=== PATIENT | female | born 2000 | race Caucasian/White ===

== ENCOUNTER 2022-02-23 22:09 | Inpatient (IN) ==
[2022-02-23] MEDS ORDERED: ONDANSETRON 4 MG/2 ML VIAL IV PRN (22:18)
[2022-02-23] MEDS ORDERED: CARBOPROST TROMETHAMINE 250 MCG/ML AMP IM PRN (22:18)
[2022-02-23] MEDS ORDERED: MEPERIDINE 50 MG/1 ML VIAL IV PRN (22:18)
[2022-02-23] MEDS ORDERED: TRANEXAMIC ACID 1,000 MG in SODIUM CHLORIDE 0.9% 100 ML IV PRN (22:18)
[2022-02-23] MEDS ORDERED: miSOPROStoL 200 MCG TABLET RECTAL PRN (22:18)
[2022-02-23] MEDS ORDERED: METHYLERGONOVINE 0.2 MG/1 ML AMP IM PRN (22:18)
[2022-02-23] MEDS ORDERED: OXYTOCIN/LR 20 UNIT/1,000 ML BAG IV ONE (22:18)
[2022-02-23] MEDS ORDERED: LACTATED RINGERS 1,000 ML IV SCH (22:30)
[2022-02-23 23:06] LABS: Basophils % 0.2 % (0.0-0.8); Eosinophils # 0.1 10*3/uL (0.0-0.87); Eosinophils % 1.3 % (0.00-10.9); Hematocrit 33.9 VOL% (35.7-47.0); Hemoglobin 11.5 GM/DL (12.0-16.0); Immature Granulocytes % 0.8 %; Immature Granulocytes Absolute 0.09 #; Lymphocytes # 1.6 10*3/uL (1.4-4.0); Lymphocytes % 15.3 % (21.3-54.2); Mean Corpuscular HGB Conc 33.9 GM/DL (32-36); Mean Corpuscular Volume 86.5 FL (87-102); Mean Platelet Volume 9.1 FL (9.6-12.0); Monocytes # 0.7 10*3/uL (0.11-0.8); Monocytes % 6.9 % (1.7-12.7); Neutrophils % 75.5 % (38.7-73.9); Platelet Count 258 T/CUMM (130-400); Red Blood Count 3.92 MC/CUMM (3.8-5.5); Red Cell Distribution Width 13.2 % (9.3-17.3); White Blood Count 10.7 T/CUMM (4-12)
[2022-02-23 23:48] LABS: Alanine Aminotransferase 15 U/L (13-56); Albumin 2.9 G/DL (3.4-5.0); Alkaline Phosphatase 180 U/L (45-117); Aspartate Amino Transferase 9 U/L (0-37); Bilirubin,Total < 0.39 MG/DL (0.20-1.00); Blood Urea Nitrogen 6 MG/DL (7-18); Calcium 9.5 MG/DL (8.5-10.1); Carbon Dioxide 23 MMOL/L (21-32); Chloride 108 MMOL/L (98-107); Glucose 92 MG/DL (74-106); Osmolality,Calculated 272.7 MOS/KG (273-304); Potassium 3.9 MMOL/L (3.5-5.1); Sodium 138 MMOL/L (136-145); Total Protein 6.6 G/DL (6.4-8.2)
[2022-02-24] MEDS ORDERED: OXYTOCIN/LR 20 UNIT/1,000 ML BAG IV SCH (02:00)
[2022-02-24] MEDS ORDERED: hydrOXYzine HCL 25 MG/1 ML VIAL IM PRN (07:22)
[2022-02-24] MEDS ORDERED: FAMOTIDINE 20 MG/2 ML VIAL IV ONE (07:22)
[2022-02-24] MEDS ORDERED: ePHEDrine 50 MG/ML VIAL IV PRN (07:22)
[2022-02-24] MEDS ORDERED: NALOXONE 0.4 MG/ML VIAL IV PRN (07:22)
[2022-02-24] MEDS ORDERED: ONDANSETRON 4 MG/2 ML VIAL IV ONE (07:22)
[2022-02-24] MEDS ORDERED: PROMETHAZINE 25 MG/1 ML VIAL IM ONE (07:22)
[2022-02-24] MEDS ORDERED: diphenhydrAMINE 50 MG/1 ML VIAL IV PRN ×2 (07:22)
[2022-02-24] MEDS ORDERED: LACTATED RINGERS 1,000 ML IV ONE (07:22)
[2022-02-24] MEDS ORDERED: CITRIC ACID/SODIUM CITRATE 30 ML UDCUP PO ONE (07:22)
[2022-02-24] MEDS ORDERED: LACTATED RINGERS 1,000 ML IV SCH (07:30)
[2022-02-24] MEDS ORDERED: fentaNYL 2 MCG/ROPIV 0.2% EPID 100 ML EPIDURAL SCH (07:30)
[2022-02-24] MEDS: LACTATED RINGERS 1,000 ML IV SCH ×2 (07:51→11:39)
[2022-02-24 10:01] LABS: Bilirubin,Urine Negative (Negative); Blood, Urine Large mg/dL (Negative); Glucose,Urine (UA) Negative (Negative); Ketones,Urine Negative (Negative); Nitrite,Urine Negative (Negative); Protein,Urine Negative (Negative); Urine Appearance Clear (Clear); Urine Color Yellow (Yellow); Urine Specific Gravity 1.015 (1.001-1.035); Urine Urobilinogen 0.2 eU/dL (<2.0)
[2022-02-24 10:03] LABS: Squamous Epithelial Cell,Urine Few /HPF (0-10)
[2022-02-24 10:04] LABS: RBC,Urine 20-30 /HPF (0-4)
[2022-02-24] MEDS ORDERED: SODIUM CHLORIDE 0.9% 0 ML IV ONE (10:43)
[2022-02-24] MEDS ORDERED: TRANEXAMIC ACID 1,000 MG/10 ML VIAL ONE (10:43)
[2022-02-24] MEDS ORDERED: miSOPROStoL 200 MCG TABLET ONE (10:43)
[2022-02-24] MEDS ORDERED: METHYLERGONOVINE 0.2 MG/1 ML AMP ONE (10:44)
[2022-02-24] MEDS ORDERED: CARBOPROST TROMETHAMINE 250 MCG/ML AMP IM ONE (10:44)
[2022-02-24 11:45] LABS: Cord Arterial Blood HCO3 22.4 MMOL/L
[2022-02-24 11:48] LABS: Cord Venous Blood HCO3 23.7 MMOL/L; Cord Venous Blood PCO2 46.3 MMHG; Cord Venous Blood PO2 35.9
[2022-02-24] MEDS ORDERED: oxyCODONE/ACETAMINOPHEN 5-325 MG TABLET PO PRN (13:54)
[2022-02-24] MEDS ORDERED: DIPH/TET/ACEL PERT BOOSTER VACCINE 0.5 ML VIAL IM ONE (13:54)
[2022-02-24] MEDS ORDERED: LANOLIN 50% CREAM 0.3 OZ TUBE TOP PRN (13:54)
[2022-02-24] MEDS ORDERED: WITCH HAZEL PADS 100/JAR TOP PRN (13:54)
[2022-02-24] MEDS ORDERED: BENZOCAINE 20%/MENTHOL 0.5% SPRAY 56 GM CAN TOP PRN (13:54)
[2022-02-24] MEDS ORDERED: HYDROCORTISONE 2.5% RECTAL CREAM 30 GM TUBE TOP PRN (13:54)
[2022-02-24] MEDS ORDERED: BISACODYL 10 MG SUPP RECTAL PRN (13:54)
[2022-02-24] MEDS ORDERED: OXYTOCIN/LR 20 UNIT/1,000 ML BAG IV ONE (13:54)
[2022-02-24] MEDS ORDERED: ACETAMINOPHEN 325 MG TABLET PO PRN (13:54)
[2022-02-24] MEDS ORDERED: RHO(D) IMMUNE GLOBULIN 300 MCG SYRINGE IM ONE (13:54)
[2022-02-24] MEDS ORDERED: MEASLES/MUMPS/RUBELLA VACCINE 0.5 ML VIAL SUBCUT ONE (13:54)
[2022-02-24] MEDS: IBUPROFEN 800 MG TABLET PO PRN (14:19)
[2022-02-24 15:01] LABS: Basophils % 0.2 % (0.0-0.8); Eosinophils % 0.1 % (0.00-10.9); Hematocrit 27.1 VOL% (35.7-47.0); Hemoglobin 9.1 GM/DL (12.0-16.0); Immature Granulocytes % 0.8 %; Immature Granulocytes Absolute 0.16 #; Lymphocytes # 1.3 10*3/uL (1.4-4.0); Lymphocytes % 6.5 % (21.3-54.2); Mean Corpuscular HGB Conc 33.6 GM/DL (32-36); Mean Corpuscular Volume 87.7 FL (87-102); Mean Platelet Volume 8.8 FL (9.6-12.0); Monocytes % 4.9 % (1.7-12.7); Neutrophils % 87.5 % (38.7-73.9); Platelet Count 209 T/CUMM (130-400); Red Blood Count 3.09 MC/CUMM (3.8-5.5); Red Cell Distribution Width 13.1 % (9.3-17.3); White Blood Count 20.3 T/CUMM (4-12)
[2022-02-24 15:55] LABS: Lymphocytes 2 % (20-55); Total Cells Counted 100
[2022-02-24 15:56] LABS: Platelet Estimate Adequate
[2022-02-24] MEDS: oxyCODONE/ACETAMINOPHEN 5-325 MG TABLET PO PRN (18:23)
[2022-02-24] MEDS: DOCUSATE SODIUM 100 MG CAPSULE PO SCH (20:45)
[2022-02-25] MEDS: IBUPROFEN 800 MG TABLET PO PRN ×3 (01:37→23:06)
[2022-02-25] MEDS: oxyCODONE/ACETAMINOPHEN 5-325 MG TABLET PO PRN ×3 (02:42→23:05)
[2022-02-25 04:51] LABS: Basophils % 0.2 % (0.0-0.8); Eosinophils # 0.1 10*3/uL (0.0-0.87); Eosinophils % 1.1 % (0.00-10.9); Hematocrit 23.1 VOL% (35.7-47.0); Hemoglobin 7.7 GM/DL (12.0-16.0); Immature Granulocytes % 0.9 %; Lymphocytes # 1.8 10*3/uL (1.4-4.0); Lymphocytes % 15.7 % (21.3-54.2); Mean Corpuscular HGB Conc 33.3 GM/DL (32-36); Mean Corpuscular Volume 88.2 FL (87-102); Mean Platelet Volume 9.4 FL (9.6-12.0); Monocytes # 0.8 10*3/uL (0.11-0.8); Monocytes % 7.3 % (1.7-12.7); Neutrophils % 74.8 % (38.7-73.9); Platelet Count 199 T/CUMM (130-400); Red Blood Count 2.62 MC/CUMM (3.8-5.5); Red Cell Distribution Width 13.2 % (9.3-17.3); White Blood Count 11.4 T/CUMM (4-12)
[2022-02-25] MEDS: FERROUS SULFATE 325 MG TABLET PO SCH ×2 (08:28→20:22)
[2022-02-25] MEDS: DOCUSATE SODIUM 100 MG CAPSULE PO SCH ×2 (08:28→20:22)
[2022-02-25] MEDS ORDERED: SODIUM CHLORIDE 0.9% 1,000 ML IV PRN (09:26)
[2022-02-25 18:34] LABS: Basophils % 0.2 % (0.0-0.8); Eosinophils # 0.3 10*3/uL (0.0-0.87); Eosinophils % 2.2 % (0.00-10.9); Hematocrit 31.5 VOL% (35.7-47.0); Hemoglobin 10.6 GM/DL (12.0-16.0); Immature Granulocytes % 0.9 %; Immature Granulocytes Absolute 0.11 #; Lymphocytes # 2.6 10*3/uL (1.4-4.0); Lymphocytes % 21.1 % (21.3-54.2); Mean Corpuscular HGB Conc 33.7 GM/DL (32-36); Mean Corpuscular Volume 88.7 FL (87-102); Monocytes # 0.8 10*3/uL (0.11-0.8); Monocytes % 6.5 % (1.7-12.7); Neutrophils % 69.1 % (38.7-73.9); Platelet Count 209 T/CUMM (130-400); Red Blood Count 3.55 MC/CUMM (3.8-5.5); Red Cell Distribution Width 13.5 % (9.3-17.3); White Blood Count 12.1 T/CUMM (4-12)
[2022-02-26 08:22] VITALS: BP 106/57
[2022-02-26] MEDS: DOCUSATE SODIUM 100 MG CAPSULE PO SCH (08:57)
[2022-02-26] MEDS: FERROUS SULFATE 325 MG TABLET PO SCH (08:57)
[2022-02-26] MEDS: IBUPROFEN 800 MG TABLET PO PRN (08:59)
== END 2022-02-26 14:00 | disposition home or self-care (01) | DRG 807 ==
LOC: N.LDOUT 22:09 → N.LD 22:10 → N.OB 02-24 16:15
PROVIDERS: ADMIT Obstetrics & Gynecology; ATTEND Obstetrics & Gynecology